=== PATIENT | female | born 2000 | race American Indian/Alaskan Native ===

== ENCOUNTER 2019-04-15 10:23 | Emergency (ER) | payer SELFPAY ==
[2019-04-15 10:32] VITALS: BP 115/82
[2019-04-15 11:04] LABS: Bacteria,Urine 1+ /HPF (Negative); Bilirubin,Urine NEG (Negative); Blood,Urine NEG (Negative); Color,Urine Yellow (Yellow); Mucus,Urine 3+ /HPF; Protein,Urine <15 mg/dL mg/dL (Negative)
[2019-04-15] MEDS ORDERED: DEXAMETHASONE 4 MG TAB PO ONE (16:15)
[2019-04-15] MEDS ORDERED: IPRATROPIUM/ALBUTEROL SULFATE 3 ML AMPUL.NEB IH ONE (16:15)
[2019-04-15 16:22] LABS: HCG Qualitative,Urine Negative (Negative)
--- NOTE | 2019-04-15 16:55 | Emergency Department Report ---
HPI - General Chief Complaint: Urogenital-Female Time Seen by Provider: 04/15/19 16:08 - HPI HPI: 18-year-old female presents to the emergency department with 2 different complaints. First, patient says that she has a history of bronchitis "since " and says that she has been having an exacerbation recently that included some shortness of breath, coughing and wheezing. Secondly, the patient complains of some burning with urination and difficulty urinating. She also has increased urinary frequency. The patient says that she feels like there is something sitting on her bladder but when she goes to urinate only a small amount will come out. She denies any pelvic pain, vaginal bleeding or discharge, fever. She has not taken anything for her symptoms prior to presentation. Denies any tobacco or illicit drug use. No recent travel or sick contacts at home. ED Past Medical Hx - Past Medical History Previous Medical History?: No - Surgical History Past Surgical History?: No - Social History Smoking Status: Never Smoker Substance Use Type: None - Medications Home Medications: Home Medications Medication Instructions Recorded Confirmed Last Taken Type Albuterol INH(or & Nicu Only) 2 puff IH QID PRN #1 inh 04/15/19 Unknown Rx [ProAir HFA Inhaler] Nitrofurantoin [place]/M-Cryst 100 mg PO Q12HR #14 capsule 04/15/19 Unknown Rx [Macrobid CAP] ED Review of Systems ROS: Stated complaint: BRONCHITIS AND OTHER ISSUES Other details as noted in HPI Comment: All other systems reviewed and negative Constitutional: denies: fever Respiratory: cough, shortness of breath, wheezing Cardiovascular: denies: chest pain, edema Gastrointestinal: denies: nausea, vomiting Genitourinary: dysuria, frequency. denies: discharge Musculoskeletal: denies: back pain, arthralgia Skin: denies: rash, lesions Neurological: denies: headache, weakness Physical Exam - Physical Exam Vital Signs: Vital Signs 04/15/19 10:30 Temperature 97.8 F Pulse Rate 64 Respiratory 20 Rate Blood Pressure 115/82 O2 Sat by Pulse 100 Oximetry Physical Exam: GENERAL: The patient is well-developed well-nourished. HEENT: Normocephalic. Atraumatic. Patient has moist mucous membranes. EYES: Extraocular motions are intact. Pupils equal and reactive to light bilaterally. NECK: Supple. Trachea is midline. CHEST/LUNGS: Mild expiratory wheezing. No tachypnea or accessory muscle use. There is no respiratory distress noted. HEART/CARDIOVASCULAR: Regular. There is no tachycardia. There is no murmur. ABDOMEN: Abdomen is soft, nontender. Patient has normal bowel sounds. There is no abdominal distention. SKIN:Skin is warm and dry. . NEURO: The patient is awake, alert, and oriented. The patient is cooperative. The patient has no focal neurologic deficits. Normal speech. MUSCULOSKELETAL: There is no tenderness or deformity. There is no evidence of acute injury. ED Course Vital Signs 04/15/19 10:30 Temperature 97.8 F Pulse Rate 64 Respiratory 20 Rate Blood Pressure 115/82 O2 Sat by Pulse 100 Oximetry ED Medical Decision Making - Medical Decision Making This patient presents with 2 main complaints. Regarding her shortness of breath she has some very mild expiratory wheezing but does not have any signs of any respiratory or acute distress. Chest x-ray did not show any pneumonia, pleural effusions, pneumothorax, or any other acute process. She was given a dose of Decadron and a breathing treatment and upon reevaluation she says she is feeling improved. She will be discharged home with an albuterol inhaler and referrals for primary care. Regarding the patient's urinary symptoms, she has a very mild urinary tract infection with about 13 wbc's and some mild leukocyte esterase and will be treated with Macrobid. An Accu-Chek was done secondary to her complaint of polyuria but her blood sugar was about 83 she does not appear to have diabetes. Vital signs stable throughout her ED course. The patient has been instructed to follow up with a primary care physician but to return to the emergency Department with any worsening of her symptoms or any acute distress. - Differential Diagnosis UTI, , pneumonia, bronchitis, asthma Critical Care Time: No Critical care attestation.: If time is entered above; I have spent that time in minutes in the direct care of this critically ill patient, excluding procedure time. ED Disposition Clinical Impression: Bronchospasm UTI (urinary tract infection) Qualifiers: Urinary tract infection type: acute cystitis Hematuria presence: without hematuria Qualified Code(s): N30.00 - Acute cystitis without hematuria Disposition: TO HOME OR SELFCARE Is pt being admited?: No Condition: Stable Instructions: Urinary Tract Infection in Women (ED), Bronchospasm (ED) Prescriptions: Nitrofurantoin [place]/M-Cryst [Macrobid CAP] 100 mg PO Q12HR #14 capsule Albuterol INH(or & Nicu Only) [ProAir HFA Inhaler] 2 puff IH QID PRN #1 inh PRN Reason: Shortness Of Breath Referrals: PRIMARY CAREMD [Primary Care Provider] - 2-3 Days GRETTA HANCOCK MD [Staff Physician] - 2-3 Days LILIYA WOODS MD [Staff Physician] - 2-3 Days [facility] [Outside] - 2-3 Days Forms: Accompanied Note, Work/School Release Form(ED) Time of Disposition: 17:35
--- NOTE | 2019-04-15 17:48 | XRay Report ---
CHEST 2 VIEWS INDICATION / CLINICAL INFORMATION: Cough. COMPARISON: None available. FINDINGS: SUPPORT DEVICES: None. HEART / MEDIASTINUM: The heart size and pulmonary vasculature are normal. LUNGS / PLEURA: No significant pulmonary or pleural abnormality. No pneumothorax. ADDITIONAL FINDINGS: No significant additional findings. IMPRESSION: No acute findings. Signer Name: Michael Clarke MD Signed: 04/15/2019 5:44 PM Workstation Name: [id number]
== END 2019-04-15 18:19 | disposition home or self-care (01) ==
LOC: ED 10:23
DX: J98.01 Acute bronchospasm (principal); N39.0 Urinary tract infection, site not specified; Z79.899 Other long term (current) drug therapy
CPT/HCPCS: 71046; 81001; 81025; 82962; 87086; 94640; 99284; J8540; 94644